=== PATIENT | male | born 1960 | race Caucasian/White ===

== ENCOUNTER → 2019-06-26 | Outpatient (CLI) | payer OTHER ==
--- NOTE | 2019-06-26 13:43 | RAD ---
CT of the abdomen without contrast 06/26/2019 INDICATION: Abdominal wall strain. Abdominal pain COMPARISON STUDY: None. TECHNIQUE: Multidetector CT imaging of the abdomen was performed without contrast Findings: There is a 5 mm noncalcified nodule right middle lobe (axial image 2). The lung bases are otherwise grossly unremarkable. Liver, gallbladder, adrenal glands, spleen, and pancreas demonstrate no acute abnormality bilateral kidneys are grossly unremarkable without evidence of hydronephrosis, nephrolithiasis, or obstructive uropathy. Visualized bowel within the upper abdomen demonstrates no evidence of obstruction or acute inflammatory change. Upper abdomen demonstrates no evidence of hernia or inflammatory change involving the anterior abdominal wall. No acute osseous changes are identified. Note that the pelvis is not included on this exam. IMPRESSION: 1. No acute abnormalities of the abdomen are identified 2. 5 mm noncalcified nodule, right middle lobe. Recommend certification basin risk factors and follow-up CT chest as described below. Pulmonary Nodule Followup: Fleischner Society recommendations (Radiology 2005; 237; 395-400): In a low risk patient: 4mm or less - No follow up required. >4-6mm- 12 month follow up, if unchanged, no further follow up. >6-8mm- 6-12 month follow up, then at 18-24 months if no change. >8mm- 3, 9, 24 month follow up or consideration of PET/CT. In a high risk patient: <4mm - 12 month follow up, if unchanged then no further follow up. >4-6mm- 6-12 month follow up, then at 18-24 months if no change. >6-8mm- 3-6 month follow up, then at 9-12 months and [address] DOSING PQRS STATEMENT: One or more of the following individualized dose reduction techniques were utilized for this examination: 1. Automated exposure control 2. Adjustment of the mA and/or kV according to patient size 3. Use of iterative reconstruction technique Electronically signed by: Shon Alicea MD (06/26/2019 1:40 PM) [id number]
== END | disposition home or self-care (01) ==
LOC: CT 13:09
PROVIDERS: ATTEND Family Medicine
DX: S39.011A Strain of muscle, fascia and tendon of abdomen, initial encounter (principal); R91.1 Solitary pulmonary nodule; X58.XXXA Exposure to other specified factors, initial encounter; Y93.89 Activity, other specified; Y92.89 Other specified places as the place of occurrence of the external cause; Y99.8 Other external cause status
CPT/HCPCS: 74150